=== PATIENT | male | born 1950 | race Caucasian/White ===

== ENCOUNTER 2022-10-06 10:26 | Emergency (ER) | payer OTHER, SELFPAY ==
[2022-10-06] VITALS (13 sets, daily range): BP systolic 110–140; BP diastolic 72–93; PULSE 87–150; RESP 12–25; TEMP 36.8; O2SAT 95–99
--- NOTE | 2022-10-06 10:35 | XR_ITS ---
WS: [id number] Left knee, 3 views, 10/06/2022 Clinical Data: fall knee pain swelling Comparison: None. Findings: No fractures or dislocations are seen. The joint spaces are normal. The patella is intact. The soft t issues are unremarkable. There are vascular calcifications XR/XR knee LT 3V* [id number] Impression: Negative left knee.
--- NOTE | 2022-10-06 10:35 | XR_ITS ---
WS: [id number] Portable AP upright chest, 10/06/2022 Clinical Data: fall tachycardia Comparison: None. Findings: No nodules, masses or effusions are seen. The heart is enlarged. The pulmonary vascularity is not increased. No pneumonia or pneumothorax is seen. The aortic arch and descending thoracic aorta show mild calcification and tortuosity. Monitor leads are on the chest wall. Is a small radiopaque f oreign body overlying the T2-T3 disc interspace. XR/XR chest 1V portable [id number] Impression: Cardiomegaly and atherosclerosis.
--- NOTE | 2022-10-06 10:35 | XR_ITS ---
WS: [id number] Right hip, AP and frog-leg views, 10/06/2022 Clinical Data: pain Comparison: None. Findings: No fractures or dislocations are seen. The hip joint is intact. There is an acetabular spur The soft tissues are not remarkable. The adjacent pelvis is normal. There are vascular calcifications. XR/XR hip RT 2-3V wo/w pel* [id number] Impression: Negative for right hip fracture.
--- NOTE | 2022-10-06 10:36 | ECG_ITS ---
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 Measurements Intervals [place] Rate: 150 P: 0 ND: 0 QRS: -52 QRSD: 121 T: 29 QT: 262 QTc: 415 Interpretive Statements ATRIAL FIBRILLATION WITH RAPID VENTRICULAR RESPONSE WITH ABERRANT CONDUCTION OR VENTRICULAR PREMATURE COMPLEXES LEFT AXIS DEVIATION [QRS AXIS < -30] MODERATE INTRAVENTRICULAR CONDUCTION DELAY [110+ ms QRS DURATION] MARKED ST DEPRESSION, CONSIDER SUBENDOCARDIAL INJURY [0.2+ mV ST DEPRESSION] No previous ECG available for comparison Electronically Signed On 10-06-2022 13:06:48 CDT by Vicente Mcgowan M.D. [id number]
--- NOTE | 2022-10-06 10:43 | W.ED.FALL ---
HPI - Fall General: Chief Complaint: Fall Stated Complaint: fall Time Seen by Provider: 10/06/22 10:29 History of Present Illness: Patient presents to the ER with complaints of a possible fall. Patient was found down in his house with his left leg bent totally up underneath him at the knee and him lying on his back. Last time patient was seen was 2 days ago. Patient presents to the ER with with no complaints at all. Patient's heart rates about 150 bpm. Patient does have some bilateral leg abrasions and skin tears with bleeding is controlled at this time. MD complaint: fall Onset (ago): unknown Fall witnessed: no Place fall occurred: home Loss of consciousness: Unsure Review of Systems General: Reports: 10 or more systems reviewed and unremarkable except in HPI and below Physical Exam Const: COMMON NORMALS: no acute distress, average body habitus, no limitations, healthy appearing, alert and well nourished ORIENTATION/CONSCIOUSNESS: Yes awake, Yes oriented to person and Yes oriented to place HENMT: COMMON NORMALS: normocephalic, atraumatic, hearing grossly normal bilaterally, external ears normal, Normal external nose present and moist oral mucous membranes HEAD & SCALP: normocephalic and atraumatic NOSE: Normal external nose present EXTERNAL EAR: Yes external ears normal Eye: COMMON NORMALS: Equal, round and reactive pupils present, EOMs intact bilaterally, conjunctivae normal and no scleral icterus CONJUNCTIVA: Yes conjunctivae normal PUPIL: Yes Equal, round and reactive pupils present Neck/C-Spine: COMMON NORMALS: full ROM, no lymphadenopathy, supple, no meningeal signs, no JVD and Thyroid normal THYROID: Thyroid normal Lymph: LYMPHATIC: no lymphadenopathy noted Chest: COMMONS NORMALS: normal inspection of the chest and normal palpation of entire chest wall Resp: COMMON NORMALS: normal respiratory effort, No retractions, No use of accessory muscles and clear to auscultation bilaterally AUSCULTATION: clear to auscultation bilaterally Cardio: COMMON NORMALS: no JVD, S1 normal heart sound present and S2 normal heart sound present RATE: tachycardic RHYTHM: abnormal rhythm HEART SOUNDS: S1 normal heart sound present, S2 normal heart sound present, Clicking heart sound present, Gallop heart sound present, Murmur heart sound present and Rub heart sound present GI: COMMON NORMALS: Normal to inspection, nondistended, normoactive bowel sounds present, Soft to palpation, non-tender, No hepatosplenomegaly present and no masses PALPATION: Yes Soft to palpation and Yes No hepatosplenomegaly present : COMMON NORMALS: Yes no CVA tenderness BLADDER/KIDNEY EXAM: Yes no CVA tenderness Back/Pelvis: COMMON NORMALS: no CVA tenderness Extremity: NARRATIVE EXTREMITY EXAM: Tenderness to palpation over right hip region no obvious deformity angulation or shortening. Left knee moderately swollen but not tender to palpate. Bilateral lower extremities in the brown area have multiple abrasions and skin tears, bleeding is controlled Neuro: SENSORIUM/ORIENTATION: Yes alert, Yes oriented to person and Yes oriented to place MENINGEAL SIGNS: Yes no meningeal signs Course Vital Signs: Vital signs: Vital Signs Temperature 98.3 F 10/06/22 10:27 Pulse Rate 87 10/06/22 19:37 Respiratory Rate 18 10/06/22 19:37 Blood Pressure 140/93 10/06/22 19:37 Pulse Oximetry 97 10/06/22 19:37 Oxygen Delivery Me thod Room Air 10/06/22 10:51 MDM - Fall Medical Decision Making Patient arrived via EMS with complaints of being found down on the floor and having a fast heart rate. Patient has A-fib with RVR with elevated troponin of 328 and elevated CK of 4712, elevated BUN/creatinine of 58 and 1.7, AST and ALT of 223 and 138, alk phos of 689, total bilirubin 7.1, chest x-ray hip x-ray knee x-ray and head CT was all unremarkable for acute changes. Patient was bolused 10 mg of Cardizem and placed on a Cardizem drip and his rate went down to 102 bpm, patient was given heparin 4000 unit bolus and placed on heparin drip per protocol for elevated troponin. Dr. Richmond was consulted and agreed for inpatient evaluation and treatment pending the CT scan showed no ductal dilation or common bile duct stones. If this is negative patient will be admitted to [facility]. MRCP was positive that showed a [address] Richmond said we should transfer them we call the [facility] in [place] and they do not have anyone I can do an ERCP till next week so they declined. We will try [facility] next. We talked to the emergency complaints coordinator who talked to GI who says they do have an in person electronic components assembler this week and I can do an ERCP. But he wanted them sent to the ER so we called [facility] and talk to Dr. Silva who accepted the patient in transfer patient be transferred by ground ambulance. Medical Records I reviewed the patient's medical records. Lab Data I reviewed the patient's lab results. 10/06/22 10:30 10/06/22 11:05 Radiology Impressions Chest X-Ray 10/06/22 10:35 Impression: Cardiomegaly and atherosclerosis. Hip/Pelvis X-Ray 10/06/22 10:35 Impression: Negative for right hip fracture. Knee X-Ray 10/06/22 10:35 Impression: Negative left knee. Head CT 10/06/22 10:55 IMPRESSION: 1. No evidence of intracranial hemorrhage or mass effect. 2. Advanced small vessel changes moderate parenchymal volume loss. 3. Chronic lacunar infarcts in the LEFT caudate and RIGHT thalamus. Tiny chronic lacunar infarct in the pasha. 4. Chronic infarct in the LEFT parietal lobe with encephalomalacia 5. No acute intracranial findings. Abdomen/Pelvis CT 10/06/22 11:58 IMPRESSION: 1. Diffuse heterogeneous enhancement involving the liver. Correlation with liver function test. Findings suspicious for hepatitis or hepatocellular disease. 2. Normal spleen. No ascites. 3. Gallbladder is thickened and contracted with wall enhancement. This can be further evaluated with ultrasound. Mild surrounding induration. 4. Urine distended bladder with prominent prostate measuring 3.9 CM. Recommend correlation PSA. 5. Densely calcified aorta with densely calcified mesenteric arteries. 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 This is age indeterminate but may be chronic 6. Bibasilar atelectasis. 7. Diffuse gastric wall and duodenal thickening with enhancement suspicious for gastroduodenitis. 8. Tiny fat-containing umbilical hernia. Cholangiopancreatography MRI 10/06/22 14:30 IMPRESSION: 1. 6 mm filling defect in the distal common bile duct suggestive of choledocholithiasis. No significant upstream dilation of the common bile duct. 2. Unremarkable noncontrast appearance of the liver. COMMENTS: Consistent with the [place] [employer]'s Incidental Findings Committee white paper (J Am Reed Radiol 2018): Any incidental renal lesion less than 1 cm or classified as too small to characterize, or any incidental cystic renal lesion characterized as simple-appearing, is likely benign. No follow-up imaging is recommended for these lesions per consensus recommendations based on imaging criteria. Laboratory Results WBC 12.7 10^3/uL (4.0-10.0) H 10/06/22 10:30 RBC 5.07 10^6/uL (4.1-5.3) 10/06/22 10:30 Hgb 14.4 g/dL (11.7-16.6) 10/06/22 10:30 Hct 44.3 % (42.0-52.0) 10/06/22 10:30 MCV 87.4 fl (80-94) 10/06/22 10:30 MCH 28.4 pg (28.0-34.0) 10/06/22 10:30 MCHC 32.5 g/dL (30.0-36.0) 10/06/22 10:30 RDW 16.1 % (12.1-15.1) H 10/06/22 10:30 Plt Count 239 10^3/cmm (130-400) 10/06/22 10:30 MPV 12.7 fL (7.4-10.4) H 10/06/22 10:30 Neut % (Auto) 87.0 % 10/06/22 10:30 Lymph % (Auto) 7.6 % 10/06/22 10:30 Nye % (Auto) 4.7 % 10/06/22 10:30 Eos % (Auto) 0.0 % 10/06/22 10:30 Baso % (Auto) 0.1 % 10/06/22 10:30 Neut # (Auto) 11.05 10^3/uL (1.8-7.7) H 10/06/22 10:30 Lymph # (Auto) 1.0 10^3/uL (0.8-4.8) 10/06/22 10:30 Nye # (Auto) 0.6 10^3/uL (0.2-0.9) 10/06/22 10:30 Eos # (Auto) 0.0 10^3/uL (0.0-0.8) 10/06/22 10:30 Baso # (Auto) 0.0 10^3/uL (0.0-0.1) 10/06/22 10:30 Nucleated RBC % (auto) 0 % 10/06/22 10:30 Nucleated RBCs # 0.0 /100WBC 10/06/22 10:30 APTT 66.7 SECONDS (23.9-36.7) H D 10/06/22 18:50 Sodium 142 mmol/L (136-145) 10/06/22 11:05 Potassium 3.6 mmol/L (3.5-5.1) 10/06/22 11:05 Chloride 105 mmol/L (98-107) 10/06/22 11:05 Carbon Dioxide 19 mmol/L (22-29) L 10/06/22 11:05 Anion Gap 21.6 (5-19) H 10/06/22 11:05 BUN 58 mg/dL (8-23) H 10/06/22 11:05 Creatinine 1.7 mg/dL (0.7-1.2) H 10/06/22 11:05 GFR Calculation Not Reportable 10/06/22 11:05 Glucose 207 mg/dL (65-115) H 10/06/22 11:05 POC Glucose 186 mg/dL (70-110) H 10/06/22 18:42 Calculated Osmolality 316 mOsm/kg (285-295) H 10/06/22 11:05 Lactic Acid 2.6 mmol/L (0.5-2.2) H 10/06/22 11:05 Lactic Acid (Sepsis) 1.8 mmol/L (0.5-2.2) 10/06/22 14:11 Calcium 9.2 mg/dL (8.5-10.5) 10/06/22 11:05 Phosphorus 3.8 mg/dL (2.5-4.5) 10/06/22 11:05 Magnesium 2.4 mg/dL (1.7-2.3) H 10/06/22 11:05 Total Bilirubin 7.1 mg/dL (0.15-1.2) H* 10/06/22 11:05 AST 223 U/L (0-40) H 10/06/22 11:05 ALT 138 U/L (0-41) H 10/06/22 11:05 Alkaline Phosphatase 689 U/L (40-130) H 10/06/22 11:05 Creatine Kinase 4712 U/L (39-308) H* 10/06/22 11:05 Troponin T Baseline 328 ng/L (0-15) H* 10/06/22 11:05 Troponin T 120 Minute 305.9 ng/L (0-15) H 10/06/22 12:36 Delta Troponin T -22.1 ABS# (0-10) L 10/06/22 12:36 Troponin T Hi Sens 6Hr 289.4 ng/L (0-15) H 10/06/22 17:12 Troponin T Hi Sens 6Hr Delta -38.6 ng/L (0-12) L 10/06/22 17:12 Total Protein 6.2 g/dL (6.6-8.7) L 10/06/22 11:05 Albumin 3.1 g/dL (3.5-5.2) L 10/06/22 11:05 Globulin 3.1 g/dL (1.3-4.6) 10/06/22 11:05 TSH 0.42 uIU/mL (0.27-4.20) 10/06/22 11:05 Urine Color (Yellow) 10/06/22 14:05 Urine Appearance Slightly cloudy (CLEAR) A 10/06/22 14:05 Urine pH 5 (5-7) 10/06/22 14:05 Ur Specific [place] 1.020 (1.005-1.030) 10/06/22 14:05 Urine Protein 3+ (Negative) H 10/06/22 14:05 Urine Glucose (UA) Trace (Normal) H 10/06/22 14:05 Urine Ketones 1+ (Negative) H 10/06/22 14:05 Urine Blood 3+ (Negative) H 10/06/22 14:05 Urine Nitrate Negative (Negative) 10/06/22 14:05 Urine Bilirubin 2+ (Negative) H 10/06/22 14:05 Urine Urobilinogen 8 mg/dL (Negative) H 10/06/22 14:05 Ur Leukocyte Esterase Trace (Negative) H 10/06/22 14:05 Urine RBC 5-10 /hpf (0-2) H 10/06/22 14:05 Urine WBC 0-4 /hpf (0-5) H 10/06/22 14:05 Ur Squamous Epith Cells 0-4 /hpf (0-5) H 10/06/22 14:05 Amorphous Sediment 3+ /hpf 10/06/22 14:05 Urine Bacteria None /hpf (NONE) 10/06/22 14:05 Fine Granular Casts 0-4 /lpf H 10/06/22 14:05 Urine Mucus 1+ /hpf 10/06/22 14:05 EKG Data EKG 1: I personally reviewed and interpreted this EKG as follows: EKG interpretation date: 10/06/22 EKG interpretation time: 10:36 Prior EKG tracings: not available for review Interpretation: EKG showed A-fib with RVR with aberrant conduction with a ventricular rate 150 beats a minute, QRS 121, QTc of 415, PVCs, left axis deviation, moderate intraventricular conduction delay, marked ST depression consider subendocardial injury. EKG 2: I personally reviewed and interpreted this EKG as follows: EKG interpretation date: 10/06/22 EKG interpretation time: 12:47 Prior EKG tracings: available for review Interpretation: EKG showed atrial fibrillation with RVR ventricular rate 111 beats a minute, QRS duration 136, QTc 378, left axis deviation, intraventricular conduction delay. EKG 3: I personally reviewed and interpreted this EKG as follows: EKG interpretation date: 10/06/22 EKG interpretation time: 17:35 Prior EKG tracings: available for review Interpretation: EKG showed ventricular rate 95 beats a minute, QRS of 132, QTc of 442, A-fib with aberrant conduction, left axis deviation, intraventricular conduction delay. Discharge Plan Discharge Patient Disposition: Xfer Short-Term Hosp Clinical Impression: Atrial fibrillation with rapid ventricular response, Acute renal failure due to rhabdomyolysis, Fall, Choledocholithiasis Condition: Stable Referrals: Paras Campbell FNP [Nurse Practitioner] - Coding Level of Care Code ED Resident Services Director for [facility]
[2022-10-06] MEDS: dilTIAZem 5 mg/mL SDV 5 mL 10 MG IVP (10:46)
[2022-10-06 10:47] LABS: Basophils % 0.1 %; Hematocrit 44.3 % (42.0-52.0); Hemoglobin 14.4 g/dL (11.7-16.6); Lymphocytes % 7.6 %; Mean Corpuscular HGB Conc 32.5 g/dL (30.0-36.0); Mean Corpuscular Hemoglobin 28.4 pg (28.0-34.0); Mean Corpuscular Volume 87.4 fl (80-94); Mean Platelet Volume 12.7 fL (7.4-10.4); Monocytes # 0.6 10^3/uL (0.2-0.9); Monocytes % 4.7 %; Neutrophils # 11.05 10^3/uL (1.8-7.7); Nucleated Red Blood Cells % 0 %; Platelet Count 239 10^3/cmm (130-400); Red Blood Count 5.07 10^6/uL (4.1-5.3); Red Cell Distribution Width 16.1 % (12.1-15.1); White Blood Count 12.7 10^3/uL (4.0-10.0)
[2022-10-06] MEDS: sodium chloride 0.9% 1,000 ML 999 ML IV ×2 (10:47→12:55)
[2022-10-06] MEDS: dilTIAZem 100 MG in sodium chloride 0.9% (add-van) 100 ML IV (10:53)
--- NOTE | 2022-10-06 10:55 | CT_ITS ---
WS: [email or web address] CT HEAD TECHNIQUE: Noncontrast CT of the head obtained from the skullbase to the vertex. CLINICAL INFORMATION: fall COMPARISON: None. DLP: 1162.[address] scans at [facility] use at least one of these dose optimization techniques: automated e xposure control; mA and/or kV adjustment per patient size (includes targeted exams where dose is matc hed to clinical indication); or iterative reconstruction. FINDINGS: No evidence of intracranial hemorrhage or mass effect. Ventricular system and basal cisterns are tinoco nt. Advanced small vessel changes with moderate parenchymal volume loss. Intracranial vascular calcif ication. Chronic lacunar infarcts in the LEFT caudate and RIGHT thalamus. Tiny chronic lacunar infarc t in the pasha. Chronic lacunar infarcts in the cerebellum. Chronic infarct in the LEFT parasagittal p arietal lobe with encephalomalacia. Paranasal sinuses and mastoid air cells are well aerated. .Normal visualized soft tissues. CT/CT head wo con* [id number] IMPRESSION: 1. No evidence of intracranial hemorrhage or mass effect. 2. Advanced small vessel changes moderate parenchymal volume loss. 3. Chronic lacunar infarcts in the LEFT caudate and RIGHT thalamus. Tiny chron ic lacunar infarct in the pasha. 4. Chronic infarct in the LEFT parietal lobe with encephalomalacia 5. No acute intracranial findings.
[2022-10-06 11:33] LABS: Alanine Aminotransferase 138 U/L (0-41); Albumin Level 3.1 g/dL (3.5-5.2); Alkaline Phosphatase 689 U/L (40-130); Aspartate Amino Transferase 223 U/L (0-40); Blood Urea Nitrogen 58 mg/dL (8-23); Calcium 9.2 mg/dL (8.5-10.5); Carbon Dioxide 19 mmol/L (22-29); Chloride 105 mmol/L (98-107); Globulin 3.1 g/dL (1.3-4.6); Glucose 207 mg/dL (65-115); Magnesium 2.4 mg/dL (1.7-2.3); Osmolality Calculated 316 mOsm/kg (285-295); Phosphorus 3.8 mg/dL (2.5-4.5); Sodium 142 mmol/L (136-145); Total Protein 6.2 g/dL (6.6-8.7)
--- NOTE | 2022-10-06 11:36 | PC.NURSE ---
PT PLACED ON CONTINUOUS NIBP, SPO2, AND CM
[2022-10-06 11:46] LABS: Troponin(5th) Baseline 328 ng/L (0-15)
[2022-10-06 11:47] LABS: Anion Gap 21.6 (5-19); Creatine Phosphokinase 4712 U/L (39-308); Potassium 3.6 mmol/L (3.5-5.1); Total Bilirubin 7.1 mg/dL (0.15-1.2)
--- NOTE | 2022-10-06 11:49 | PC.PHAR ---
pt unable to verify medications-pts family brought in med bottles-faxed [facility] for med [facility] medications entered are from med bottles pts family brought in
--- NOTE | 2022-10-06 11:58 | CT_ITS ---
WS: [email or web address] CT ABDOMEN PELVIS TECHNIQUE: Contrast-enhanced CT of the abdomen and pelvis with coronal and sagittal reformatted image s. CLINICAL INFORMATION: elevated bili, ast, alt, ck COMPARISON: None. DLP: 541.[address] scans at [facility] use at least one of these dose optimization techniques: automated e xposure control; mA and/or kV adjustment per patient size (includes targeted exams where dose is matc hed to clinical indication); or iterative reconstruction. FINDINGS: Diffuse coarse heterogeneous enhancement involving the liver. Recommend correlation with liver functi on studies. Portal vein and splenic vein appear patent. Normal spleen. Diffuse mucosal enhancement in volving the stomach with gastric wall thickening extending into the duodenum compatible with gastrodu odenitis. Slight hazy bibasilar atelectasis in the lung bases. Normal pancreatic parenchymal enhancement. Splen ic artery calcification. Mild diffuse wall thickening involving the gallbladder with enhancement. Gal lbladder is contracted with slight surrounding induration. Recommend further evaluation with ultrasou nd and correlation for cholecystitis. Adrenal glands are normal. Normal renal parenchymal enhancement. No hydronephrosis. Small simple LEFT lower pole renal cyst measuring 12 mm. Normal caliber abdominal aorta. Aortic calcification. Celiac is patent. SMA is patent at the origin and occluded in the midabdomen. High-grade stenosis at the JASWANT origin. This appears patent distally. Cardiomegaly. Urine distended bladder. Prostate measures 3.9 CM. No high-grade small or large bowel o bstruction. Normal appendix in the RIGHT lower quadrant. Normal caliber abdominal aorta. Dense aortic calcification and iliac calcification. Advanced hypertrophic degenerative changes LEFT hip with fore shortening. CT/CT abdomen pelvis w con* [id number] IMPRESSION: 1. Diffuse heterogeneous enhancement involving the liver. Correlation with gaurav er function test. Findings suspicious for hepatitis or hepatocellular disease. 2. Normal spleen. No ascites. 3. Gallbladder is thickened and contracted with wall enhancement. This can be further evaluated with ultrasound. Mild surrounding induration. 4. Urine distended bladder with prominent prostate measuring 3.9 CM. Recommend correlation PSA. 5. Densely calcified aorta with densely calcified mesenteric arteries. 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 This is age indeterminate but may be chronic 6. Bibasilar atelectasis. 7. Diffuse gastric wall and duodenal thickening with enhancement suspicious fo r gastroduodenitis. 8. Tiny fat-containing umbilical hernia.
[2022-10-06 12:03] LABS: Thyroid Stimulating Hormone 0.42 uIU/mL (0.27-4.20)
[2022-10-06 12:05] LABS: Lactic Sepsis W/Reflex 2.6 mmol/L (0.5-2.2)
[2022-10-06] MEDS: heparin 5,000 unit/mL INJ 1 mL 4000 UNIT IVP (12:38)
[2022-10-06] MEDS: heparin drip 25,000 UNIT/500 ML PREMIX 22 UNIT IV (12:42)
--- NOTE | 2022-10-06 12:47 | ECG_ITS ---
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 Measurements Intervals [place] Rate: 111 P: 0 KS: 0 QRS: -38 QRSD: 136 T: 0 QT: 312 QTc: 426 Interpretive Statements ATRIAL FIBRILLATION WITH RAPID VENTRICULAR RESPONSE LEFT AXIS DEVIATION [QRS AXIS < -30] INTRAVENTRICULAR CONDUCTION DELAY [130+ ms QRS DURATION] Compared to ECG 10/06/2022 10:36:09 Aberrant conduction of supraventricular beat(s) no longer present Ventricular premature complex(es) no longer present ST (T wave) deviation no longer present Electronically Signed On 10-06-2022 13:06:59 CDT by Vicente Mcgowan M.D. [id number]
[2022-10-06 13:01] LABS: Troponin 5 2HR Delta -22.1 ABS# (0-10)
[2022-10-06 13:02] LABS: Troponin 5 2HR 305.9 ng/L (0-15)
[2022-10-06 13:11] LABS: Partial Thromboplastin Time 20.6 SECONDS (23.9-36.7)
[2022-10-06 13:25] LABS: Reflex Lactate Order REFLEX LACTIC ORDERD
[2022-10-06] MEDS: iohexol 350 mg/mL 500 mL Btl (per mL) IV (13:36)
--- NOTE | 2022-10-06 14:08 | PC.NURSE ---
PT AND FAMILY INFORMED OF NEED TO PLACE BARR CATHETER. UPON PREPARING TO INSERT BARR CATHETER THIS NURSE NOTICED PT FORESKIN HAD NOT BEEN RETRACTED FOR SOME TIME. THERE APPEARED TO BE SOME PENILE DRAINAGE. ER PHYSICIAN NOTIFIED. ER PHYSICIAN GAVE VERBAL ORDER TO CONTINUE WITH BARR INSERTION WITH A SMALLER CATHETER. 14FR COUDE CATHETER USED. APPROX 600ML OF TEA COLORED URINE OBTAINED. PT NOTED TO BE VOIDING INTO AND AROUND THE CATHETER FROM THE URETHRA DIRECTLY. ED PHYSICIAN INFORMED. ED PHYSICIAN GAVE VERBAL ORDER TO DC BARR CATHETER.
--- NOTE | 2022-10-06 14:30 | MRR_ITS ---
PROCEDURE INFORMATION: Exam: MR Abdomen Without Contrast Exam date and time: 10/06/2022 4:32 PM Age: 71 years old Clinical indication: Abdominal pain; Additional info: Elevated bilirubin , derailed lft TECHNIQUE: Imaging protocol: Magnetic resonance imaging of the abdomen without contrast. COMPARISON: CT abdomen pelvis w con* [id number] 10/06/2022 1:23 PM FINDINGS: Liver: No mass. Gallbladder and bile ducts: Cholecystectomy. There is a 6 mm filling defect in the distal common bile duct as seen on series 801, image 4 and series 801, image 6. There is no significant upstream dilation of the common bile duct measuring up to 6 mm in diameter. Pancreas: Unremarkable. No ductal dilation. Spleen: Unremarkable. No splenomegaly. Adrenal glands: Unremarkable. No mass. Kidneys and ureters: 1.2 cm simple cyst noted in the left kidney. No solid mass. No hydronephrosis. Stomach and bowel: Visualized stomach and intestines are unremarkable. Intraperitoneal space: No free fluid. Vasculature: No abdominal aortic aneurysm. Bones/joints: Unremarkable. Soft tissues: Unremarkable. MR/MR MRCP [id number] IMPRESSION: 1. 6 mm filling defect in the distal common bile duct suggestive of choledocholithiasis. No significant upstream dilation of the common bile duct. 2. Unremarkable noncontrast appearance of the liver. COMMENTS: Consistent with the [place] [employer]'s Incidental Findings Committee white paper (J Am Reed Radiol 2018): Any incidental renal lesion less than 1 cm or classified as too small to characterize, or any incidental cystic renal lesion characterized as simple-appearing, is likely benign. No follow-up imaging is recommended for these lesions per consensus recommendations based on imaging criteria.
[2022-10-06 14:42] LABS: Lactic Acid level (Lactate) 1.8 mmol/L (0.5-2.2)
[2022-10-06 15:16] LABS: Bilirubin Urine 2+ (Negative); Blood Urine 3+ (Negative); Glucose Urine UA Trace (Normal); Ketones Urine 1+ (Negative); Leukocyte Esterase Urine Trace (Negative); Nitrate Urine Negative (Negative); Protein Urine 3+ (Negative); Urine Appearance Slightly Cloudy (CLEAR); Urine Color Amber (Yellow); Urobilinogen Urine 8 mg/dL (Negative); pH Urine 5 (5-7)
[2022-10-06 15:17] LABS: Add Urine Microscopic? YES; Amorphous Sediment Urine 3+ /hpf; Fine Granular Casts Urine 0-4 /lpf; Mucus Urine 1+ /hpf; Squamous Epithelial Cell Urine 0-4 /hpf (0-5); WBC Urine 0-4 /hpf (0-5)
[2022-10-06 15:18] LABS: Add Urine Culture? No
--- NOTE | 2022-10-06 17:35 | ECG_ITS ---
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 Measurements Intervals [place] Rate: 95 P: 0 ND: 0 QRS: -76 QRSD: 132 T: 0 QT: 389 QTc: 491 Interpretive Statements ATRIAL FIBRILLATION WITH ABERRANT CONDUCTION OR VENTRICULAR PREMATURE COMPLEXES LEFT AXIS DEVIATION [QRS AXIS < -30] INTRAVENTRICULAR CONDUCTION DELAY [130+ ms QRS DURATION] Compared to ECG 10/06/2022 12:47:35 Ventricular premature complex(es) now present Aberrant conduction of supraventricular beat(s) now present Electronically Signed On 10-06-2022 18:31:52 CDT by Vicente Mcgowan M.D. [email or web address]
--- NOTE | 2022-10-06 17:36 | USCV_ITS ---
Thor Castaneda Age: 71 Gender: M : 1950 Exam Date: 10/06/2022 18:09 Ordering Phys: Brandon Richmond MD Technologist: CHERIE Exam Location: [facility] – [place] Indication: s/p fall elevated troponin BP: / HR: Rhythm: Sinus Technical Quality: Adequate MEASUREMENTS (Male / Female) Normal Values 2D ECHO LV Diastolic Diameter PLAX 5.6 cm 4.2 - 5.9 / 3.9 - 5.3 cm LV Systolic Diameter PLAX 5.1 cm IVS Diastolic Thickness 1.0 cm 0.6 - 1.0 / 0.6 - 0.9 cm IVS Systolic Thickness 1.1 cm LVPW Diastolic Thickness 0.9 cm 0.6 - 1.0 / 0.6 - 0.9 cm LVPW Systolic Thickness 0.9 cm LVOT Diameter 2.4 cm LV Ejection Fraction 2D Teich 18.7 % LV Ejection Fraction MOD 2C 30.1 % LV Ejection Fraction 2C AL 31.0 % LA Diameter 5.0 cm IVC Diameter 1.9 cm M-MODE Aortic Annulus Diameter 2.5 cm LA Ao Ratio MM 2.0 MV E Point Septal Separation 1.2 cm DOPPLER AV Peak Velocity 135.0 cm/s LVOT Peak Velocity 59.0 cm/s AV Area Cont Eq vti 1.9 cm squared AV Area Cont Eq pk 2.0 cm squared MV Area PHT 4.0 cm squared Mitral E to A Ratio 2.7 MV E' Velocity 62.5 cm/s Mitral E to MV E' Ratio 15.4 Mitral E to LV E' Lateral Ratio 14.1 Mitral E to LV E' Septal Ratio 17.0 TR Peak Velocity 207.2 cm/s TR Peak Gradient 17.2 mmHg TV Peak E Velocity 51.0 cm/s Right Atrial Pressure 6.0 mmHg Pulmonary Artery Systolic Pressu 23.2 mmHg PV Peak Velocity 57.0 cm/s FINDINGS Left Ventricle Normal left ventricular cavity size. Moderately decreased left ventricular systolic function. Left ventricular ejection fraction is estimated at 30 %. Moderate global hypokinesis with severe hypokinesis of basal to mid inferior hernandez and basal to mid inferolateral hernandez. Rhythm precludes evaluation of diastolic function. Right Ventricle Normal right ventricular size and systolic function. Right Atrium Moderately increased right atrial size. Left Atrium Moderately increased left atrial size. Mitral Valve Thickened mitral valve. No mitral valve stenosis. At least moderate mitral valve regurgitation. Aortic Valve Thickened and trileaflet aortic valve. No aortic valve stenosis. No aortic valve regurgitation. Tricuspid Valve Structurally normal tricuspid valve. No tricuspid valve stenosis. Mild tricuspid valve regurgitation. Pulmonic Valve Structurally normal pulmonic valve. No pulmonary valve stenosis. Trace pulmonary valve regurgitation. Pericardium No pericardial effusion. Aorta Normal size aortic root and proximal ascending aorta. IVC Normal IVC dimension with >50% respiratory change of the inferior vena cava. CONCLUSIONS 1. Normal left ventricular cavity size. Moderately decreased left ventricular systolic function. Left ventricular ejection fraction is estimated at 30 %. Moderate global hypokinesis with severe hypokinesis of basal to mid inferior hernandez and basal to mid inferolateral hernandez. 2. No prior similar studies to compare. Osiris Harvey MD (Electronically Signed) Final Date: 07 October 2022 10:52 S
--- NOTE | 2022-10-06 17:41 | P.HP_ITS ---
Providers/Chief Complaint Primary Care Provider: FRACISCO Urias Chief Complaint: fall History of Present Illness Thor Castaneda is a 71 year old male with past medical history of hypertension diabetes, dyslipidemia Was brought in from home after he was found down, he was not answering his phone, when the board of his home had to be broken to gain access, but I interacted with the patient today he told me that, he was, pushing his car when he was, fell down, and that is all remember for now, when he came here he was found to be in A-fib with RVR, he was also having significant, elevated total bilirubin transaminitis, elevated troponin, elevated creatinine kinase, patient denied any, significant chest pain shortness of breath abdominal pain nausea vomiting, fever cough. He was afebrile, was maintaining a decent MAP was saturating well on room air. Pertinent labs includes: WBC 12.7, H&H:14/44, PLT : 239 , serum sodium 142, serum potassium 3.6, serum bicarb 19, anion gap 21.6, BUN 58, serum creatinine 1.7, random blood sugar 207, lactic acid 2.6, serum magnesium 2.4, total bilirubin 7.1, AST 223, ALT 138, ALP 689, creatinine kinase 4712, TSH 0.42 Troponin trend: Baseline 328, 2H troponin 305 Urinalysis: 3+ protein, 2+ urine bilirubin, urine nitrate negative, urine leukocyte esterase trace, urine bacteria none. CT abdomen and pelvis with contrast showed: Diffuse heterogeneous enhancement involving the liver. Correlation with liver function test. Findings suspicious for hepatitis or hepatocellular disease.?Gallbladder is thickened and contracted with wall enhancement. This can be further evaluated with ultrasound. Mild surrounding induration.Urine distended bladder with prominent prostate measuring 3.9 CM.?Diffuse gastric wall and duodenal thickening with enhancement suspicious for gastroduodenitis. MRCP: ?6 mm filling defect in the distal common bile duct suggestive of choledocholithiasis.No significant upstream dilation of the common bile duct. CT without contrast: No acute intracranial pathology, x-ray knee x-ray hip : No acute fracture X-ray chest: Cardiomegaly Review of Systems General: Reports: 10 or more systems reviewed and unremarkable except in HPI and below Const: Denies: fever(s), chills, body aches, change in appetite or diaphoresis Card: Denies: palpitations, edema, swelling of feet/ankles, dyspnea on exertion, orthopnea or leg pain with exertion Resp: Denies: dyspnea, productive cough, wheezing or pain on inspiration GI: Denies: abdominal pain, nausea, vomiting, diarrhea or constipation : Denies: flank pain or difficulty urinating Musc: Denies: back pain, extremity pain or extremity swelling Neuro: Denies: headache(s), difficulty walking or confusion Medications/Allergies Home Medications Medication Instructions Recorded Confirmed Last Taken Type atorvastatin 80 mg tablet (Lipitor) 40 mg PO DAILY 10/06/22 10/06/22 Unknown History hydrochlorothiazide 25 mg tablet 12.5 mg PO QAM 10/06/22 10/06/22 Unknown History ibuprofen 200 mg tablet 400 mg PO BID 10/06/22 10/06/22 Unknown History lisinopril 40 mg tablet 40 mg PO QAM 10/06/22 10/06/22 Unknown History metformin 500 mg tablet,extended 1,000 mg PO QAM 10/06/22 10/06/22 Unknown History release 24 hr omega-3 fatty acids 1,000 mg 2,000 mg PO BID 10/06/22 10/06/22 Unknown History capsule Allergies Allergy/AdvReac Type Severity Reaction Status Date / Time No Known Allergies Allergy Verified 10/06/22 10:36 Vitals/I&O/Wt Last Vital Signs Temp 98.3 F 10/06/22 10:27 Pulse 100 10/06/22 15:39 Resp 18 10/06/22 14:00 BP 133/85 10/06/22 15:39 Pulse Ox 99 10/06/22 15:39 O2 Del Method Room Air 10/06/22 10:51 10/06/22 10/06/22 10/06/22 06:59 14:59 22:59 Intake Total 7.5 / 7.5 Balance 7.5 / 7.5 Weight last 48 hrs Weight 79.379 kg Physical Exam Const: COMMON NORMALS: patient oriented x3 HENMT: COMMON NORMALS: normocephalic and atraumatic HEAD & SCALP: normocephalic and atraumatic Eye: OTHER: Scleral icterus present Resp: COMMON NORMALS: clear to auscultation bilaterally AUSCULTATION: clear to auscultation bilaterally Cardio: OTHER: Irregularly irregular rhythm, S1-S2 variable intensity GI: COMMON NORMALS: Normal to inspection, nondistended, normoactive bowel sounds present, Soft to palpation, non-tender, No hepatosplenomegaly present and no masses AUSCULTATION: Yes normoactive bowel sounds PALPATION: Yes Soft to palpation and Yes No hepatosplenomegaly present RECTAL EXAM: Yes deferred Extremity: COMMON NORMALS: no clubbing, cyanosis or edema and no pedal edema Neuro: COMMON NORMALS: patient oriented x3 Data 10/06/22 10:30 10/06/22 11:05 A&P Assessment and plan (1) Atrial fibrillation with rapid ventricular response: (2) Rhabdomyolysis: (3) NSTEMI (non-ST elevated myocardial infarction): (4) Transaminitis: (5) Total bilirubin, elevated: (6) Metabolic acidosis: (7) Increased anion gap metabolic acidosis: (8) Hypermagnesemia: (9) Choledocholithiasis: (10) Gastroduodenitis: (11) Diabetes: (12) Hypertension: Plan 71 year old male with past medical history of hypertension diabetes, dyslipidemia Was brought in from home after he was found down. Assessment: Elevated total bilirubin with transaminitis: MRCP showing: ?6 mm filling defect in the distal common bile duct suggestive of choledocholithiasis.No significant upstream dilation of the common bile duct.. Ultrasound abdomen: Patient has currently been empirically kept on Zosyn, monitor for possible developing ascending cholangitis he has been kept on IV hydration Attempt is being made to transfer the patient to tertiary care center where ERCP is available, as well as GI facility. Monitor CMP for now Hepatitis panel N.p.o. NSTEMI: Currently patient is denying any chest pain, shortness of breath, diaphoresis. Could be possibly secondary to A-fib with RVR Troponin trend: Baseline 328, 2H troponin 305, 6-hour troponin pending Follow-up 2D echo A-fib with RVR: Currently on Cardizem drip On p.o. Cardizem 30 every 6H On heparin drip NORA on CKD: Possibly secondary to rhabdo, dehydration, possible urinary retention Admission serum creatinine 1.7 Baseline serum creatinine unknown Monitor and output charting Griggs catheter in place Random urine sodium Random urine creatinine Avoid nephrotoxic's Monitor BMP Hold lisinopril Hold ibuprofen Increased anion gap metabolic acidosis: Possibly secondary to acute kidney injury Continue IV hydration Monitor BMP for now Rhabdomyolysis: S/p fall Continue IV hydration Monitor urine output Monitor CPK Gastroduodenitis: Optimally covered with Zosyn Diabetes: LDSSI, monitor fingerstick glucose Hold metformin Hypertension: Continue p.o. Cardizem for now CODE STATUS; full code DVT prophylaxis: Currently on heparin drip Disposition: Patient is being transferred to a GI specialist for ERCP. Attestations Medical Necessity Statement*: transfer Coding Level of Care Code Acute Code for [facility] Fwd Diagnoses Atrial fibrillation with rapid ventricular response I48.91 Rhabdomyolysis M62.82 NSTEMI (non-ST elevated myocardial infarction) I21.4 Transaminitis R74.01 Total bilirubin, elevated R17 Metabolic acidosis E87.20 Increased anion gap metabolic acidosis E87.29 Hypermagnesemia E83.41 Choledocholithiasis K80.50 Gastroduodenitis K29.90 Diabetes E11.9 Hypertension I10
[2022-10-06 18:08] LABS: Troponin 5 6HR 289.4 ng/L (0-15)
[2022-10-06] MEDS: dilTIAZem 100 MG in sodium chloride 0.9% (add-van) 100 ML 15 MG IV (18:14)
[2022-10-06] MEDS: sodium chloride 0.9% 1,000 ML 125 ML IV (18:31)
[2022-10-06 18:46] LABS: Glucose Point of Care 186 mg/dL (70-110)
[2022-10-06 19:11] LABS: Partial Thromboplastin Time 66.7 SECONDS (23.9-36.7)
[2022-10-06] MEDS: piperacillin-tazobactam 3.375 GM in sodium chloride 0.9% (plus) 50 ML IV (19:26)
== END 2022-10-06 21:29 | disposition short-term general hospital (02) ==
PROVIDERS: Emergency Provider Emergency Medicine; PCP Nurse Practitioner
DX: I48.20 Chronic atrial fibrillation, unspecified (principal); N17.9 Acute kidney failure, unspecified; M62.82 Rhabdomyolysis; K80.50 Calculus of bile duct without cholangitis or cholecystitis without obstruction
CPT/HCPCS: 36415; 36416; 70450; 71045; 73502; 73562; 74177; 74181; 80053; 81001; 82550; 82962; 83605; 83735; 84100; 84443; 84484; 85025; 85730; 87040; 93005; 93306; 96361; 96365; 96375; 96376; 99285; J1644; J2543; J3490; J7030; Q9967